=== PATIENT | male | born 1945 | race Two or more races ===

== ENCOUNTER 2018-12-06 17:55 | Inpatient (IN) | payer MEDICARE ==
[~2018-12-06] VITALS: Ht 175.3 cm; Wt 74.8 kg
[2018-12-06] MEDS ORDERED: SIMV5TAB53 PO (18:00)
[2018-12-06] MEDS ORDERED: LISI2.5T47 PO (18:00)
[2018-12-06 19:25] LABS: BASOPHILS % 0.4 % (0.0-2.0); EOSINOPHILS % 1.3 % (0.0-5.0); HEMATOCRIT. 41.6 % (42.0-52.0); HEMOGLOBIN. 13.9 g/dL (14.0-18.0); LYMPHOCYTES % 7.5 % (20.0-50.0); MEAN CORPUSCULAR HEMOGLOBIN 29.9 pg (28.0-32.0); MEAN CORPUSCULAR VOLUME 89.4 fL (80.0-94.0); MONOCYTES % 13.1 % (2.0-8.0); NEUTROPHILS % 77.7 % (40.0-76.0); PLATELET 294 x1000/uL (130-400); RED BLOOD CELL COUNT 4.65 mill/uL (4.7-6.1); RED CELL DISTRIBUTION WIDTH 14.4 % (11.6-14.6)
[2018-12-06 19:33] LABS: CHLORIDE 102 mEq/L (98-107)
[2018-12-06 19:40] LABS: ETHANOL BLOOD < 10 mg/dL
[2018-12-06 19:59] LABS: CLARITY URINE CLEAR (CLEAR); COLOR URINE YELLOW (YELLOW); KETONES URINE TRACE (NEGATIVE); LEUKOCYTE ESTERASE URINE NEGATIVE (NEGATIVE); NITRITE URINE NEGATIVE (NEGATIVE); OCCULT BLOOD URINE NEGATIVE (NEGATIVE); PH URINE 6.5 (4.5-8.0); PROTEIN URINE TRACE (NEGATIVE); SPECIFIC GRAVITY URINE 1.027 (1.005-1.030)
[2018-12-06 20:08] LABS: *BENZODIAZEPINES SCREEN URINE NEGATIVE (NEGATIVE); *COCAINE SCREEN URINE NEGATIVE (NEGATIVE)
[2018-12-06 20:09] LABS: *AMPHETAMINES SCREEN URINE NEGATIVE (NEGATIVE); *BARBITURATES SCREEN URINE NEGATIVE (NEGATIVE); CANNABINOID URINE SCREEN NEGATIVE (NEGATIVE); METHADONE URINE SCREEN NEGATIVE (NEGATIVE); OPIATES URINE SCREEN PRESUMTIVE POSITIVE (NEGATIVE); PHENCYCLIDINE URINE SCREEN NEGATIVE (NEGATIVE)
[2018-12-06] MEDS ORDERED: ACETAMINOPHEN 650MG/20.3ML UDC GT PRN (20:15)
[2018-12-06] MEDS ORDERED: CLONIDINE 0.1MG TABLET PO PRN (20:15)
[2018-12-06] MEDS ORDERED: NA PHOS,M-B/NA PHOS,DI-BA ENEMA 118ML PR PRN (20:15)
[2018-12-06] MEDS ORDERED: ACETAMINOPHEN 650MG SUPP PR PRN (20:15)
[2018-12-06] MEDS ORDERED: GUAIFENESIN 200MG/10ML SUGAR FREE UDC PO PRN (20:15)
[2018-12-06] MEDS ORDERED: ONDANSETRON HCL 4MG/2ML INJ IV PRN (20:15)
[2018-12-06] MEDS ORDERED: MAGNESIUM/ALUMINUM HYDROXIDE/SIMETHICONE 30ML UDC PO PRN (20:15)
[2018-12-06] MEDS ORDERED: IPRATROPIUM/ALBUTEROL 0.5-3(2.5)MG/3ML NEB INH PRN (20:15)
[2018-12-06] MEDS ORDERED: ENALAPRIL 1.25 MG in DEXTROSE 5% WATER 49 ML IV PRN (20:30)
[2018-12-06 23:38] LABS: CREATINE KINASE 180 IU/L (39-308)
[2018-12-06 23:39] LABS: CREATINE KINASE MB FRACTION < 1.0 ng/mL (0.5-3.6)
[2018-12-07] VITALS (7 sets, daily range): BP systolic 133–146; BP diastolic 66–81
[2018-12-07] MEDS: SODIUM CHLORIDE 0.9% INJ 3ML FLUSH IVF SCH ×3 (05:06→22:00)
[2018-12-07] MEDS: ENOXAPARIN 40MG/0.4ML SYR SUBCUT SCH (09:24)
[2018-12-07 10:24] LABS: BASOPHILS % 0.6 % (0.0-2.0); EOSINOPHILS % 1.5 % (0.0-5.0); HEMATOCRIT. 36.5 % (42.0-52.0); HEMOGLOBIN. 12.3 g/dL (14.0-18.0); LYMPHOCYTES % 8.7 % (20.0-50.0); MEAN CORPUSCULAR VOLUME 89.1 fL (80.0-94.0); MEAN PLATELET VOLUME 7.5 fl (7.4-10.4); MONOCYTES % 9.8 % (2.0-8.0); NEUTROPHILS % 79.4 % (40.0-76.0); PLATELET 248 x1000/uL (130-400); RED BLOOD CELL COUNT 4.09 mill/uL (4.7-6.1); RED CELL DISTRIBUTION WIDTH 13.8 % (11.6-14.6)
[2018-12-07 11:17] LABS: CREATINE KINASE 132 IU/L (39-308)
[2018-12-07 11:18] LABS: CREATINE KINASE MB FRACTION < 1.0 ng/mL (0.5-3.6)
[2018-12-07 12:11] LABS: CHLORIDE 105 mEq/L (98-107)
[2018-12-07 12:18] LABS: LDL CHOLESTEROL 108 mg/dL (5-100)
[2018-12-07 12:20] LABS: HDL CHOLESTEROL 40 mg/dL (40-59)
[2018-12-07 19:50] LABS: VITAMIN B12 SERUM 244 pg/mL (211-911)
[2018-12-07] MEDS: DOCUSATE SODIUM 100MG CAPSULE PO PRN (20:37)
[2018-12-08 02:00] VITALS: BP 150/76
[2018-12-08 04:00] VITALS: BP 156/92
[2018-12-08 08:00] VITALS: BP 101/68
[2018-12-08] MEDS: ENOXAPARIN 40MG/0.4ML SYR SUBCUT SCH (09:02)
[2018-12-08 12:00] VITALS: BP 132/72
[2018-12-08 16:00] VITALS: BP 129/60
[2018-12-08] MEDS: ASPIRIN 81MG TABLET PO SCH (23:19)
[2018-12-08] MEDS: ATORVASTATIN CALCIUM 10MG TABLET PO SCH (23:19)
[2018-12-08] MEDS: SODIUM CHLORIDE 0.9% INJ 3ML FLUSH IVF SCH (23:19)
[2018-12-09] VITALS: BP 137/69
[2018-12-09 04:00] VITALS: BP 143/78
[2018-12-09] MEDS: SODIUM CHLORIDE 0.9% INJ 3ML FLUSH IVF SCH ×3 (06:00→22:00)
[2018-12-09 08:00] VITALS: BP 129/57
[2018-12-09] MEDS ORDERED: ASPI-1160 PO (08:14)
[2018-12-09] MEDS: ENOXAPARIN 40MG/0.4ML SYR SUBCUT SCH (09:00)
[2018-12-09] MEDS: ASPIRIN 81MG TABLET PO SCH (09:00)
[2018-12-09] MEDS: CYANOCOBALAMIN 1000MCG/ML VIAL IM SCH (09:00)
[2018-12-09 12:00] VITALS: BP 141/75
[2018-12-09 16:00] VITALS: BP 138/79
[2018-12-09 20:00] VITALS: BP 104/71
[2018-12-09] MEDS: DIPHENHYDRAMINE 50MG/ML VIAL IV PRN (20:21)
[2018-12-09] MEDS: ACETAMINOPHEN 325MG TABLET PO PRN (20:21)
[2018-12-09] MEDS: ATORVASTATIN CALCIUM 10MG TABLET PO SCH (20:21)
[2018-12-10 00:32] VITALS: BP 113/76
[2018-12-10 04:00] VITALS: BP 155/81
[2018-12-10] MEDS: SODIUM CHLORIDE 0.9% INJ 3ML FLUSH IVF SCH (04:45)
[2018-12-10 08:00] VITALS: BP 115/62
[2018-12-10] MEDS: ASPIRIN 81MG TABLET PO SCH (09:00)
[2018-12-10] MEDS: ENOXAPARIN 40MG/0.4ML SYR SUBCUT SCH (09:55)
[2018-12-10] MEDS: CYANOCOBALAMIN 1000MCG/ML VIAL IM SCH (09:55)
[2018-12-10] MEDS: DOCUSATE SODIUM 100MG CAPSULE PO PRN (09:56)
[2018-12-10] MEDS ORDERED: IOHEXOL-350 100 ML BOTTLE ONE (11:42)
[2018-12-10 12:00] VITALS: BP 139/71
[2018-12-10 15:10] LABS: INR 1.1; PROTHROMBIN TIME 11.3 sec (9.1-11.1)
[2018-12-10 15:55] LABS: BG BASE EXCESS 1.7 mmol/L (-2.0-2.0); BG CARBOXYHEMOGLOBIN 0.9 % (0.5-1.5); BG DEOXYHEMOGLOBIN 2.9 % (0.0-5.0); BG FRACTION INSPIRED OXYGEN 21; BG HCO3 ACT 26.1 mmol/L (22.0-26.0); BG METHEMOGLOBIN 0.3 % (0.0-1.5); BG OXYGEN SATURATION 97.1 % (92.0-98.5); BG OXYHEMOGLOBIN 95.9 % (94.0-97.0); BG PCO2 40.3 mmHg (35.0-45.0); BG PO2 89.2 mmHg (75.0-100.0); BG SAMPLE SITE RIGHT BRACHIAL; BG TOTAL HEMOGLOBIN 13.1 g/dL (12.0-18.0); BG VENT MODE ROOM AIR
[2018-12-10 16:49] LABS: HEMATOCRIT 35.9 % (42.0-52.0); HEMOGLOBIN 12.3 g/dL (14.0-18.0); MEAN CORPUSCULAR HEMOGLOBIN 30.1 pg (28.0-32.0); MEAN CORPUSCULAR VOLUME 88.1 fL (80.0-94.0); PLATELET 311 x1000/uL (130-400); RED BLOOD CELL COUNT 4.08 mill/uL (4.7-6.1); RED CELL DISTRIBUTION WIDTH 13.8 % (11.6-14.6)
[2018-12-10 18:16] VITALS: BP 124/83
[2018-12-10 20:00] VITALS: BP 138/74
[2018-12-10] MEDS: ATORVASTATIN CALCIUM 10MG TABLET PO SCH (21:02)
[2018-12-10] MEDS: DIPHENHYDRAMINE 50MG/ML VIAL IV PRN (21:03)
[2018-12-10] MEDS: ACETAMINOPHEN 325MG TABLET PO PRN (21:03)
[2018-12-11] VITALS (56 sets, daily range): BP systolic 111–176; BP diastolic 48–100
[2018-12-11] MEDS: DEXT 5%/0.45% NACL 1000ML 1,000 ML IV SCH ×3 (00:25→19:57)
[2018-12-11] MEDS ORDERED: PROPOFOL 200MG/20ML VIAL IV ONE (07:00)
[2018-12-11] MEDS ORDERED: ROCURONIUM BROMIDE 10MG/ML VIAL 5ML IV ONE (07:01)
[2018-12-11] MEDS ORDERED: FENTANYL CITRATE/PF 50MCG/ML 2ML VIAL ONE (07:01)
[2018-12-11] MEDS ORDERED: PHENYLEPHRINE HCL 10 MG/ML 1ML (IV VIAL) IV ONE (07:01)
[2018-12-11] MEDS ORDERED: LIDOCAINE HCL/PF 1% 10 MG/ML 5ML VIAL ONE (07:01)
[2018-12-11] MEDS ORDERED: BACITRACIN 15GM TUBE TOP ONE (07:07)
[2018-12-11] MEDS ORDERED: PAPAVERINE HCL 30 MG/ML 2ML IV ONE (07:07)
[2018-12-11] MEDS ORDERED: LIDOCAINE HCL 1% 20ML VIAL (Pyxis) INJ ONE (07:07)
[2018-12-11] MEDS ORDERED: GELATIN SPONGE,ABSORBABLE 12-7MM SPONGE ONE (07:07)
[2018-12-11] MEDS ORDERED: THROMBIN (BOVINE) 5000 UNITS/VIAL TOP ONE (07:08)
[2018-12-11] MEDS ORDERED: NORMAL SALINE 0.9% 10 ML SYR ONE (07:09)
[2018-12-11] MEDS ORDERED: BACITRACIN 50,000 UNITS/VIAL ONE (07:09)
[2018-12-11] MEDS ORDERED: HEPARIN SODIUM 1,000 UNIT/1ML VIAL IV ONE (07:09)
[2018-12-11] MEDS ORDERED: BUPIVACAINE HCL/PF 0.5% (5MG/ML) 10ML ONE (07:10)
[2018-12-11 07:13] LABS: HEMOGLOBIN 12.1 g/dL (14.0-18.0); MEAN CORPUSCULAR HEMOGLOBIN 29.5 pg (28.0-32.0); MEAN CORPUSCULAR VOLUME 87.8 fL (80.0-94.0); PLATELET 314 x1000/uL (130-400); RED BLOOD CELL COUNT 4.11 mill/uL (4.7-6.1); RED CELL DISTRIBUTION WIDTH 13.8 % (11.6-14.6)
[2018-12-11] MEDS ORDERED: PHENYLEPHRINE 10 MG in DEXTROSE 5% WATER 250 ML IV SCH (07:30)
[2018-12-11] MEDS ORDERED: MIDAZOLAM HCL 2 MG/2 ML VIAL ONE (07:36)
[2018-12-11 07:51] LABS: T4 FREE 0.78 ng/dL (0.76-1.46)
[2018-12-11] MEDS ORDERED: MORPHINE SULFATE 4 MG/ML CPJ (NOT FOR IM USE) IV PRN (08:00)
[2018-12-11] MEDS ORDERED: CEFAZOLIN SODIUM 1000MG/VIAL ONE (08:10)
[2018-12-11] MEDS ORDERED: GLYCOPYRROLATE 0.2 MG/ML 2ML VIAL ONE (08:33)
[2018-12-11] MEDS ORDERED: HEPARIN 1000 UNITS/ML 10ML ONE (08:35)
[2018-12-11] MEDS ORDERED: NEOSTIGMINE METHYLSULFATE 1MG/ML 10 ML VIAL ONE (08:59)
[2018-12-11] MEDS: CYANOCOBALAMIN 1000MCG/ML VIAL IM SCH (09:00)
[2018-12-11] MEDS ORDERED: MORPHINE SULFATE 2 MG/ML CPJ (NOT FOR IM USE) IV PRN (09:15)
[2018-12-11] MEDS ORDERED: ONDANSETRON HCL 4MG/2ML INJ IV PRN (09:15)
[2018-12-11] MEDS ORDERED: FENTANYL CITRATE/PF 50MCG/ML 2ML VIAL IV PRN (09:15)
[2018-12-11] MEDS ORDERED: HYDROMORPHONE HCL/PF 2MG/ML CPJ IV PRN (09:15)
[2018-12-11] MEDS ORDERED: MEPERIDINE HCL/PF 25MG/ML CPJ IV PRN (09:15)
[2018-12-11] MEDS ORDERED: METOCLOPRAMIDE HCL 10MG/2ML VIAL ONE (09:19)
[2018-12-11] MEDS: NICARDIPINE 40MG/200ML PREMIX 200 ML IV PRN ×2 (10:20→19:56)
[2018-12-11] MEDS: SODIUM CHLORIDE 0.9% INJ 3ML FLUSH IVF SCH ×3 (10:42→20:00)
[2018-12-11] MEDS: ASPIRIN 81MG TABLET PO SCH (12:00)
[2018-12-11] MEDS: ENOXAPARIN 40MG/0.4ML SYR SUBCUT SCH (12:00)
[2018-12-11] MEDS: PANTOPRAZOLE SODIUM 40 MG/VIAL IV SCH (12:52)
[2018-12-11 17:04] LABS: HEMATOCRIT 38.5 % (42.0-52.0); HEMOGLOBIN 12.7 g/dL (14.0-18.0)
[2018-12-11] MEDS: ATORVASTATIN CALCIUM 10MG TABLET PO SCH (20:00)
[2018-12-12] VITALS (65 sets, daily range): BP systolic 111–172; BP diastolic 47–88
[2018-12-12] MEDS: SODIUM CHLORIDE 0.9% INJ 3ML FLUSH IVF SCH ×3 (05:07→21:13)
[2018-12-12 05:41] LABS: BASOPHILS % 0.6 % (0.0-2.0); EOSINOPHILS % 1.2 % (0.0-5.0); HEMATOCRIT. 37.6 % (42.0-52.0); HEMOGLOBIN. 12.5 g/dL (14.0-18.0); LYMPHOCYTES % 10.3 % (20.0-50.0); MEAN CORPUSCULAR HEMOGLOBIN 29.3 pg (28.0-32.0); MEAN CORPUSCULAR VOLUME 87.9 fL (80.0-94.0); MEAN PLATELET VOLUME 7.4 fl (7.4-10.4); MONOCYTES % 14.4 % (2.0-8.0); NEUTROPHILS % 73.5 % (40.0-76.0); PLATELET 337 x1000/uL (130-400); RED BLOOD CELL COUNT 4.28 mill/uL (4.7-6.1); RED CELL DISTRIBUTION WIDTH 13.9 % (11.6-14.6)
[2018-12-12 05:50] LABS: PHOSPHORUS 3.2 mg/dL (2.5-4.9)
[2018-12-12] MEDS: LEVOTHYROXINE SODIUM 25MCG TABLET PO SCH (08:46)
[2018-12-12] MEDS: ENOXAPARIN 40MG/0.4ML SYR SUBCUT SCH (08:46)
[2018-12-12] MEDS: ASPIRIN 81MG TABLET PO SCH (08:46)
[2018-12-12] MEDS: PANTOPRAZOLE SODIUM 40 MG/VIAL IV SCH (08:48)
[2018-12-12] MEDS ORDERED: ENALAPRIL 1.25MG/ML VIAL 1ML IV ONE (08:51)
[2018-12-12] MEDS ORDERED: ENALAPRIL 1.25MG/ML VIAL 1ML IV PRN (09:00)
[2018-12-12] MEDS: ATORVASTATIN CALCIUM 10MG TABLET PO SCH (21:12)
[2018-12-13] VITALS: BP 139/68
[2018-12-13 04:00] VITALS: BP 177/98
[2018-12-13] MEDS: LEVOTHYROXINE SODIUM 25MCG TABLET PO SCH (06:29)
[2018-12-13] MEDS: SODIUM CHLORIDE 0.9% INJ 3ML FLUSH IVF SCH ×2 (06:29→20:53)
[2018-12-13 07:25] LABS: HEMATOCRIT 39.7 % (42.0-52.0); HEMOGLOBIN 13.5 g/dL (14.0-18.0); MEAN CORPUSCULAR HEMOGLOBIN 29.9 pg (28.0-32.0); MEAN CORPUSCULAR VOLUME 88.3 fL (80.0-94.0); PLATELET 332 x1000/uL (130-400); RED CELL DISTRIBUTION WIDTH 13.7 % (11.6-14.6)
[2018-12-13 07:41] LABS: CHLORIDE 105 mEq/L (98-107)
[2018-12-13 08:18] VITALS: BP 144/56
[2018-12-13] MEDS: ASPIRIN 81MG TABLET PO SCH (09:06)
[2018-12-13] MEDS: ENOXAPARIN 40MG/0.4ML SYR SUBCUT SCH (09:08)
[2018-12-13] MEDS: AMLODIPINE 5MG TABLET PO SCH (10:45)
[2018-12-13 12:00] VITALS: BP 137/69
[2018-12-13] MEDS: METOPROLOL TARTRATE 25MG TABLET PO SCH ×2 (12:00→20:52)
[2018-12-13 16:00] VITALS: BP 136/75
[2018-12-13 20:00] VITALS: BP 139/72
[2018-12-13] MEDS: ATORVASTATIN CALCIUM 10MG TABLET PO SCH (20:52)
[2018-12-14] VITALS: BP 139/66
[2018-12-14 04:00] VITALS: BP 143/68
[2018-12-14] MEDS: SODIUM CHLORIDE 0.9% INJ 3ML FLUSH IVF SCH (05:14)
[2018-12-14] MEDS: LEVOTHYROXINE SODIUM 25MCG TABLET PO SCH (06:14)
[2018-12-14 07:34] LABS: HEMATOCRIT 37.1 % (42.0-52.0); HEMOGLOBIN 12.5 g/dL (14.0-18.0); MEAN CORPUSCULAR HEMOGLOBIN 29.6 pg (28.0-32.0); MEAN CORPUSCULAR VOLUME 87.6 fL (80.0-94.0); PLATELET 361 x1000/uL (130-400); RED BLOOD CELL COUNT 4.23 mill/uL (4.7-6.1); RED CELL DISTRIBUTION WIDTH 14.1 % (11.6-14.6)
[2018-12-14 07:41] LABS: CHLORIDE 105 mEq/L (98-107)
[2018-12-14 09:00] VITALS: BP 124/67
[2018-12-14] MEDS: METOPROLOL TARTRATE 25MG TABLET PO SCH (09:00)
[2018-12-14] MEDS: ASPIRIN 81MG TABLET PO SCH (09:00)
[2018-12-14] MEDS: ENOXAPARIN 40MG/0.4ML SYR SUBCUT SCH (09:00)
[2018-12-14] MEDS: AMLODIPINE 5MG TABLET PO SCH (09:00)
[2018-12-14 12:00] VITALS: BP 140/70
[2018-12-14 12:52] VITALS: BP 140/70
== END 2018-12-14 17:15 | disposition home health service (06) | DRG 37 ==
LOC: ER 17:55 → 7WST 20:14 → EDBEDREQTM 20:16 → EDBEDREQ 20:16 → EDBEDREQSVC 20:16 → ENRESERV 22:42 → CVICU 12-11 09:40 → 5WST 12-12 16:21 → 8WST 12-14 09:00
PROVIDERS: ADMIT Internal Medicine; ATTEND Internal Medicine
PROC: 2W3GX1Z Immobilization of Right Thumb using Splint (ICD-10-PCS; 2018-12-06)
PROC: 4A00X4Z Measurement of Central Nervous Electrical Activity, External Approach (ICD-10-PCS; 2018-12-08)
PROC: 03CL0ZZ Extirpation of Matter from Left Internal Carotid Artery, Open Approach (ICD-10-PCS; principal; 2018-12-11)
DX: I63.232 Cerebral infarction due to unspecified occlusion or stenosis of left carotid arteries (principal); I50.33 Acute on chronic diastolic (congestive) heart failure; E44.0 Moderate protein-calorie malnutrition; N17.9 Acute kidney failure, unspecified; I69.354 Hemiplegia and hemiparesis following cerebral infarction affecting left non-dominant side; C14.0 Malignant neoplasm of pharynx, unspecified; E86.0 Dehydration; D64.9 Anemia, unspecified; E03.9 Hypothyroidism, unspecified; E78.00 Pure hypercholesterolemia, unspecified; E78.5 Hyperlipidemia, unspecified; F15.90 Other stimulant use, unspecified, uncomplicated; I11.0 Hypertensive heart disease with heart failure; M47.892 Other spondylosis, cervical region; M48.02 Spinal stenosis, cervical region; S01.01XA Laceration without foreign body of scalp, initial encounter; F19.10 Other psychoactive substance abuse, uncomplicated; I25.10 Atherosclerotic heart disease of native coronary artery without angina pectoris; R73.9 Hyperglycemia, unspecified; R26.9 Unspecified abnormalities of gait and mobility; M19.031 Primary osteoarthritis, right wrist; W18.30XA Fall on same level, unspecified, initial encounter; Y93.89 Activity, other specified; Y99.8 Other external cause status; Y92.009 Unspecified place in unspecified non-institutional (private) residence as the place of occurrence of the external cause; Z82.49 Family history of ischemic heart disease and other diseases of the circulatory system; Z85.819 Personal history of malignant neoplasm of unspecified site of lip, oral cavity, and pharynx; Z92.3 Personal history of irradiation; Z95.1 Presence of aortocoronary bypass graft; Z68.24 Body mass index [BMI] 24.0-24.9, adult; Z79.899 Other long term (current) drug therapy
CPT/HCPCS: 36415; 36600; 70498; 70544; 70547; 70551; 71045; 72141; 73070; 73110; 73502; 80048; 80061; 80305; 80307; 80329; 82375; 82550; 82553; 82607; 82805; 83036; 83735; 84100; 84439; 84443; 84484; 85014; 85018; 85027; 88304; 88311; 92610; 93005; 93306; 93880; 93970; 97116; 97162; 97164; 97165; 97530; 99285; C9113; G0482; J0690; J1200; J1644; J1650; J2250; J2370; J2405; J2440; J2704; J2710; J2765; J3010; J3420; J3490; J7060; Q9967